=== PATIENT | male | born 1950 | race Caucasian/White ===

== ENCOUNTER 2024-08-10 08:14 | Inpatient (IN) ==
--- NOTE | 2024-08-10 08:48 | Emergency Department Note ---
History of Present Illness General Chief complaint: Tachycardia Stated complaint: TACHYCARDIA, PALPITATIONS Time Seen by Provider: 08/10/24 08:32 Source: patient Mode of arrival: ambulatory Limitations: no limitations History of Present Illness Maximum Pain Intensity: 2 Patient is a 74-year-old male who presents with palpitations. Symptoms started around 3 AM when he went to go to the bathroom. Tachycardic on arrival with a regular rhythm. No history of atrial fibrillation. He does have a history of intermittent PACs. No underlying cardiac history. Denies any lightheadedness, dizziness, chest pain, shortness of breath, nausea, vomiting. No drug use reported. Last folic beverage was 2 days prior. Home Medications Medication Instructions Recorded Confirmed Type sildenafil (pulm.hypertension) 20 20 mg PO DAILY PRN 1-t tablets as 06/03/19 08/10/24 Rx mg tablet needed for sexual activity #90 tabs cholecalciferol (vitamin D3) 50 50 mcg PO DAILY 05/02/22 08/10/24 History mcg (2,000 unit) tablet (Vitamin D3) multivitamin 1 tab PO QAM 05/02/22 08/10/24 History Allergies Allergy/AdvReac Type Severity Reaction Status Date / Time No Known Allergies Allergy Verified 12/30/23 14:15 Past Med/Surg History Problem List (Updated 08/10/24 @ 11:37 by Garcia Ma MD) Atrial fibrillation (Acute) Colon cancer screening Elevated PSA BPH loc w urin obs/LUTS Medical History BPH (benign prostatic hyperplasia) Acid reflux Glaucoma "MILD" NO EYE DROPS CURRENTLY Premature atrial contraction "OCCASIONAL" DX 30+ YEARS AGO (NO CARDS) History of COVID-19 03/18/22>SYMPTOMS RESOLVED Surgical History History of colonoscopy History of tooth extraction Status post glaucoma surgery RT History of hernia repair History of appendectomy Family History Brother Prostate cancer Other No family history of adverse response to anesthesia Social History Smoking Status: Never smoker Second Hand Exposure: No; Hx Alcohol Use: Yes Alcohol type: wine Preferred Language: Urdu 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 Remainder of ROS noncontributory. Physical Exam Vital Signs Vital Signs - 24 hr 08/10/24 08:15 08/10/24 08:35 08/10/24 08:36 Temperature 36.0 C L Temperature Source Temporal Artery Scan Pulse Rate 134 H Pulse Rate [Apical] Pulse Rate from SpO2 Sensor Pulse Rhythm [Apical] Pulse Strength [Apical] Respiratory Rate 22 Respiratory Effort / Characteristics Short of Breath Short of Breath Respiratory Depth Respiratory Pattern Blood Pressure 107/79 103/57 L Blood Pressure [Left Arm] Blood Pressure Mean 88 84 Blood Pressure Mean [Left Arm] Pulse Oximetry 96 Oxygen Delivery Method Room Air Sepsis Recent Fever Within 48 Hours No Sepsis New/Unexplained Change in Mental Status N/A Sepsis Action Taken by Nursing No Action Required End-Tidal CO2 08/10/24 08:42 08/10/24 08:44 08/10/24 08:56 Temperature Temperature Source Pulse Rate 160 H 149 H Pulse Rate [Apical] Pulse Rate from SpO2 Sensor Pulse Rhythm [Apical] Pulse Strength [Apical] Respiratory Rate 18 Respiratory Effort / Characteristics Respiratory Depth Respiratory Pattern Blood Pressure 125/102 H Blood Pressure [Left Arm] Blood Pressure Mean 104 Blood Pressure Mean [Left Arm] Pulse Oximetry Oxygen Delivery Method Sepsis Recent Fever Within 48 Hours Sepsis New/Unexplained Change in Mental Status Sepsis Action Taken by Nursing End-Tidal CO2 08/10/24 08:57 08/10/24 09:00 08/10/24 09:03 Temperature Temperature Source Pulse Rate 147 H 143 H Pulse Rate [Apical] Pulse Rate from SpO2 Sensor 140 H 120 H Pulse Rhythm [Apical] Pulse Strength [Apical] Respiratory Rate 26 H 22 Respiratory Effort / Characteristics Respiratory Depth Respiratory Pattern Blood Pressure 83/71 L Blood Pressure [Left Arm] Blood Pressure Mean 77 Blood Pressure Mean [Left Arm] Pulse Oximetry 90 94 Oxygen Delivery Method Sepsis Recent Fever Within 48 Hours Sepsis New/Unexplained Change in Mental Status Sepsis Action Taken by Nursing End-Tidal CO2 18 34 08/10/24 09:06 08/10/24 09:08 08/10/24 09:18 Temperature Temperature Source Pulse Rate 150 H 147 H Pulse Rate [Apical] Pulse Rate from SpO2 Sensor 108 H Pulse Rhythm [Apical] Pulse Strength [Apical] Respiratory Rate 19 Respiratory Effort / Characteristics Respiratory Depth Respiratory Pattern Blood Pressure 102/74 Blood Pressure [Left Arm] Blood Pressure Mean 94 Blood Pressure Mean [Left Arm] Pulse Oximetry 95 Oxygen Delivery Method Sepsis Recent Fever Within 48 Hours Sepsis New/Unexplained Change in Mental Status Sepsis Action Taken by Nursing End-Tidal CO2 32 08/10/24 09:22 08/10/24 09:30 08/10/24 09:38 Temperature Temperature Source Pulse Rate Pulse Rate [Apical] Pulse Rate from SpO2 Sensor Pulse Rhythm [Apical] Pulse Strength [Apical] Respiratory Rate Respiratory Effort / Characteristics Respiratory Depth Respiratory Pattern Blood Pressure 84/66 L 110/77 113/66 Blood Pressure [Left Arm] Blood Pressure Mean 79 81 83 Blood Pressure Mean [Left Arm] Pulse Oximetry Oxygen Delivery Method Sepsis Recent Fever Within 48 Hours Sepsis New/Unexplained Change in Mental Status Sepsis Action Taken by Nursing End-Tidal CO2 08/10/24 09:54 08/10/24 10:00 08/10/24 10:00 Temperature Temperature Source Pulse Rate 105 H 117 H Pulse Rate [Apical] Pulse Rate from SpO2 Sensor 102 H 114 H Pulse Rhythm [Apical] Pulse Strength [Apical] Respiratory Rate 23 18 Respiratory Effort / Characteristics Respiratory Depth Respiratory Pattern Blood Pressure 113/77 Blood Pressure [Left Arm] Blood Pressure Mean 90 Blood Pressure Mean [Left Arm] Pulse Oximetry 95 87 L Oxygen Delivery Method Sepsis Recent Fever Within 48 Hours Sepsis New/Unexplained Change in Mental Status Sepsis Action Taken by Nursing End-Tidal CO2 31 33 08/10/24 10:15 08/10/24 10:24 08/10/24 11:15 Temperature Temperature Source Pulse Rate 112 H Pulse Rate [Apical] 105 H Pulse Rate from SpO2 Sensor 100 H Pulse Rhythm [Apical] Irregular Pulse Strength [Apical] Normal Respiratory Rate 18 Respiratory Effort / Characteristics Non-Labored Spontaneous Respiratory Depth Normal Respiratory Pattern Regular Blood Pressure 95/75 L Blood Pressure [Left Arm] 105/71 Blood Pressure Mean 80 Blood Pressure Mean [Left Arm] 82 Pulse Oximetry 98 96 Oxygen Delivery Method Room Air Sepsis Recent Fever Within 48 Hours Sepsis New/Unexplained Change in Mental Status Sepsis Action Taken by Nursing End-Tidal CO2 See below Constitutional well developed and well nourished Respiratory normal respiratory effort, lungs clear to auscultation Cardiovascular Rate/Rhythm: + tachycardic and + irregularly irregular Extremities: normal capillary refill Chest (Breasts) normal inspection/palpation of breasts Skin no rashes, warm and dry Procedures Free Text Procedures Procedure: Electrical cardioversion Indication: Atrial fibrillation with RVR with known onset time Performed by: Self Risk, benefits, alternative treatments were discussed with patient. Written consent signed Patient was placed on court recording monitor and AED pads were placed in appropriate position on patient. 5 mg of Versed were given prior to procedure for anxiolysis. Patient was also given 500 mL of normal saline periprocedure. AED was placed and synchronized mode at 150 J. Patient was given 1 shock at 150 J. Remained in atrial fibrillation with RVR. A second shock was then given at 200 J. Patient remained in. Patient Toller procedure well. At this point electrical cardioversion was discontinued. Course Administered Medications Diltiazem HCl 125 mg/ Dextrose 125 mls @ 5 mls/hr IV .Q24H [facility]; Protocol Stop: 09/09/24 09:14 Last Admin: 08/10/24 09:36 Dose: 5 mg/hr, 5 mls/hr Documented By: SKIP Co-signed By: HECTOR Discontinued Medications Sodium Chloride (Nss) 1,000 mls @ 999 mls/hr IV .Q1H1M [facility] Stop: 08/10/24 10:09 Last Infusion: 08/10/24 10:45 Dose: Infused Documented By: Admin: 08/10/24 09:28 Dose: 999 mls/hr Documented By: SKIP Magnesium Sulfate/Dextrose (Magnesium Sulfate / D5w) 1 gm in 100 mls @ 200 mls/hr IV Q30M [facility] Stop: 08/10/24 10:09 Last Admin: 08/10/24 10:45 Dose: Not Given Documented By: Infusion: 08/10/24 10:45 Dose: Infused Documented By: Admin: 08/10/24 09:27 Dose: 200 mls/hr Documented By: SKIP Ioversol (Optiray 320 125ml) 119 ml IV ONCE ONE Stop: 08/10/24 10:35 Last Admin: 08/10/24 10:35 Dose: 119 ml Documented By: JARET Midazolam HCl (Midazolam Hcl 5 Mg/Ml 2ml Vial) 5 mg IV NOW STA Stop: 08/10/24 08:41 Last Admin: 08/10/24 08:53 Dose: 5 mg Documented By: SKIP Miscellaneous (Stat Iv Infusion Titration Per Protocol) 1 each N/A NOW STA Stop: 08/10/24 09:13 Last Admin: 08/10/24 11:11 Dose: Not Given Documented By: GGG Critical Care Time Critical Care Time: Yes Total Critical Care Time: 36 Critical Care Procedure Note Authorized and Performed by:Garcia Ma MD Total critical care time: [id number] Due to a high probability of clinically significant, life threatening deterioration, the patient required my highest level of preparedness to intervene emergently and I personally spent this critical care time directly and personally managing the patient. This critical care time included obtaining a history; examining the patient; pulse oximetry; ordering and review of studies; arranging urgent treatment with development of a management plan; evaluation of patient's response to treatment; frequent reassessment; and, discussions with other providers. This critical care time was performed to assess and manage the high probability of imminent, life-threatening deterioration that could result in multi-organ failure. It was exclusive of separately billable procedures and treating other patients and teaching time. Please see MDM section and the rest of the note for further information on patient assessment and treatment. Medical Decision Making Differential Diagnosis Atrial fibrillation vs. flutter, pericardial effusion Medical Records Attestation: I reviewed the patient's medical records. Home Medications Current Medication List: was personally reviewed by me Laboratory Data Attestation: I reviewed the patient's lab results. 08/10/24 08:30 08/10/24 08:30 Lab Results 08/10/24 Range/Units 08:30 WBC 9.75 (4.8-10.8) K/ul RBC 4.50 L (4.70-6.10) M/uL Hgb 14.7 (14.0-18.0) g/dl Hct 44.0 (42.0-52.0) % MCV 97.8 (80.0-100.0) fL MCH 32.7 (25.0-34.0) pg MCHC 33.4 (32.0-36.0) g/dL RDW Std Deviation 43.2 (36.4-46.3) fL RDW Coeff of Doris 11.9 (11.5-14.5) % Plt Count 277 (130-400) K/uL MPV 10.4 (9.4-12.4) fL Immature Gran % (Auto) 0.3 % Neut % (Auto) 78.4 % Lymph % (Auto) 10.2 % [place] % (Auto) 10.2 % Eos % (Auto) 0.7 % Baso % (Auto) 0.2 % Neut # (Auto) 7.65 H (1.40-6.50) K/uL Lymph # (Auto) 0.99 L (1.20-3.40) K/uL [place] # (Auto) 0.99 H (0.11-0.59) K/uL Eos # (Auto) 0.07 (0.00-0.50) K/uL Baso # (Auto) 0.02 (0.00-0.20) K/uL Immature Gran # (Auto) 0.03 (0.01-0.20) K/uL D-Dimer 1010 H* (0-500) ug/L FEU Sodium 141 (136-145) mmol/L Potassium 3.7 (3.5-5.1) mmol/L Chloride 107 (98-107) mmol/L Carbon Dioxide 26 (21-32) mmol/L Anion Gap 8 (3-11) BUN 14 (6-23) mg/dl Creatinine 1.02 (0.6-1.4) mg/dl Est Cr Clr Drug Dosing 73.9 ml/min eGFR 77.12 BUN/Creatinine Ratio 13.7 (10-20) Glucose 102 H (70-99(Fasting)) mg/dl Calcium 8.9 (8.6-10.3) mg/dl Magnesium 2.1 (1.7-2.4) mg/dl Total Bilirubin 0.9 (0.2-1.0) mg/dl AST 15 (13-39) U/L ALT 13 (7-52) U/L Alkaline Phosphatase 56 (34-104) U/L Troponin I High Sens 6.6 (0-20) pg/ml Total Protein 7.2 (6.0-8.3) gm/dl Albumin 4.1 (3.4-5.0) gm/dl Globulin 3.1 (2.5-4.0) gm/dl Albumin/Globulin Ratio 1.3 (0.9-2) TSH 2.796 (0.300-4.500) uIu/ml Imaging Data Attestation: I personally reviewed and interpreted this imaging study as follows: Radiologist's Impression: Chest CTA 08/10/24 10:00 CT angio chest PE protocol CLINICAL HISTORY: PE TECHNIQUE: Multidetector row helical CT of the chest was performed with angiographic protocol. Coronal and sagittal reformations were obtained. Coronal and sagittal MIPS were obtained from the axial data set and were submitted for review. Automated dose lowering techniques and/or adjustment according to patient size were utilized for this exam. CT DOSE: 698.13 mGy.cm Comparison: Comparison is made to CT abdomen pelvis 12/30/2023 FINDINGS: Lungs and pleura: Atelectasis versus scarring is seen in the dependent portions of the lungs. Tree-in-bud nodularity is seen. There is trace bilateral pleural effusions. There are a few fissural nodules which likely represent intraparenchymal lymph nodes. Heart and pericardium: A moderate pericardial effusion is seen. Vessels: No evidence of pulmonary embolism. Mediastinum and leoncio: Subcentimeter lymph nodes are seen. Chest wall and lower neck: Unremarkable. Abdomen: A hiatal hernia is seen. Bones: Degenerative changes in the thoracic spine. IMPRESSION: 1. No evidence of pulmonary embolus. 2. Tree in bud nodularity may represent infectious/inflammatory process. 3. Moderate pericardial effusion, new from prior exam. 4. Trace bilateral pleural effusions and associated atelectasis. ACT 112: Negative or not required by law. Electronically signed by: Jv Peters M.D. 08/10/2024 11:04 AM ECG Data Attestation: I personally reviewed and interpreted this ECG as follows: Rate (beats per minute): 159 Rhythm: + atrial fibrillation and + atrial flutter ECG [place]: + Normal ECG ST segments: + ST depression (Lateral/inferior ) Comparison ECG Date: no prior available Blood Pressure Blood Pressure Findings: Normal blood pressure MDM Narrative Patient is a 74-year-old male who presents with new onset atrial fibrillation with RVR. Heart rate around 150. Rhythm irregularly irregular. Blood pressure stable on arrival. Known onset time at 3 AM. Patient is an adequate candidate for electrical cardioversion. See procedure note for further details. Patient did not convert after 2 attempts at cardioversion here today. I did touch base with [facility] cardiology who recommended rate control with beta-claribel versus calcium channel claribel. Patient was started on diltiazem drip. Heart rate improved to the low 110s. Blood pressure stable. Electrolytes nonconcerning. D-dimer elevated. Follow-up CTA shows no evidence of PE. Moderate pericardial effusion noted without tamponade physiology. Patient will be admitted for atrial fibrillation with RVR requiring diltiazem infusion. Impression & Plan Atrial fibrillation Admission for rate control Discharge Plan Visit Data Chief Complaint: Tachycardia Stated Complaint: TACHYCARDIA, PALPITATIONS ED Provider: Garcia Ma Discharge Problem: Atrial fibrillation Forms Stand Alone Forms: [facility] [employer] Prescriptions Prescriptions: No Action sildenafil (pulm.hypertension) 20 mg tablet 20 mg PO DAILY PRN (Reason: 1-t tablets as needed for sexual activity) Qty: 90 3RF Rx Instructions: max 100mg in 24 hours multivitamin Tablet 1 tab PO QAM cholecalciferol (vitamin D3) [Vitamin D3] 50 mcg (2,000 unit) Tablet 50 mcg PO DAILY Referrals Referrals: Tamera Marinelli PA-C [Primary Care Provider] -
--- OUTSIDE RECORDS SUMMARY | 2024-08-10 08:48 | External Medical Summary | Continuity of Care Document ---
Author Name Unknown Organization [facility] [address] [id number] Care Team Providers Care Licensed Direct Entry Midwife Name Role Phone Tamera Marinelli Primary Care Physician [phone] [id number] Date(s): 06/09/24 - 06/09/24 [facility] [address] [facility] [address] [place], [place] [id number] Encounter Diagnosis Inflamed seborrheic keratosis(Discharge Diagnosis) - 06/09/24 Skin hemangioma(Discharge Diagnosis) - 06/09/24 Discharge Disposition: Home or Self Care Attending Physician: MD Charlton Thomas A Allergies, Adverse Reactions, Alerts No Known Allergies Assessment and Plan Extracted from: Title:Clinical Document Author:MD Zoltan, Felipa Johnson Date:06/09/24 OUTPATIENT NOTE Name: BABAR BOSS Patient Number:[id number] : 1950 Date of Service: 06/09/2024 Rogelio Boss returns for reevaluation. He notes a keratotic papule that has been irritating in the right infraorbital area. This appears as a seborrheic keratosis and was treated with cryotherapy at patient request and with his consent as inflamed seborrheic keratosis. Side effects were discussed. If it persists or recurs he will let us know. Review of systems medications allergies as noted on the chart. The patient is in stable health. Examination reveals pleasant well-nourished white male type II skin was alert and oriented x 3 with no mood and affect. Examination of the head, neck, back, chest, arms, hands, fingers, abdominal area, legs, feet, and toes reveals scattered seborrheic keratoses about which the patient was reassured as to their benign nature, multiple hemangiomas on the back and abdominal area requiring no further treatment, and is otherwise unremarkable. The patient will return in 1 year for reevaluation. Immunizations Given and Recorded Vaccine Date Status Refusal Reason influenza virus vaccine, inactivated 04/12/22 Give n influenza virus vaccine, inactivated 06/16/19 Give n SARS-CoV-2 (COVID-19) mRNA-1273 vaccine 1 06/19/21 Recorded SARS-CoV-2 (COVID-19) mRNA-1273 vaccine 09/27/20 R ecorded SARS-CoV-2 (COVID-19) mRNA-1273 vaccine 2 09/27/20 Recorded SARS-CoV-2 (COVID-19) mRNA-1273 vaccine 08/30/20 R ecorded SARS-CoV-2 (COVID-19) mRNA-1273 vaccine 3 08/30/20 Recorded pneumococcal 23-valent vaccine 04/10/21 Given pneumococcal 13-valent vaccine 06/16/19 Given tetanus/diphtheria/pertuss, acel (Tdap) 4 02/28/09 Recorded 1Result Comment: 2022-04-12: Historical information-source unspecified 2Result Comment: 2021-04-10: Historical information-source unspecified 3Result Comment: 2021-04-10: Historical information-source unspecified 4Result Comment: 2021-04-10: Historical information-source unspecified Medications Codeine Phosphate-Promethazine HCl 10 mg-6.25 mg/5 mL oral syrup Start: 08/23/22 4:40:00 PM EST, 5 mL, PO, q6h, Disp# 240 mL, Refills: 0, No driving while taking this medication. not to exceed 30 mL/24 hours, PRN: as needed for cough, Pharmacy: [facility]/pharmacy #[id number] Start Date: 08/23/22 Stop Date: 08/28/22 Status: Ordered multivitamin Start: 06/18/22 2:19:00 PM EST, 1 tab, PO, Daily Start Date: 06/18/22 Status: Ordered Omnicef 300 mg oral capsule Start: 08/23/22 3:01:00 PM EST, 1 cap, PO, q12h, Disp# 14 cap, Pharmacy: [id number] Start Date: 08/23/22 Stop Date: 08/30/22 Status: Ordered Shingrix intramuscular injection Start: 04/12/22 9:28:00 AM EDT, 0.5 mL, IM, ONCE, Disp# 1 each, Refills: 1, repeat dose in 2 to 6 months, Pharmacy: [facility] Start Date: 04/12/22 Status: Ordered sildenafil 20 mg oral tablet Start: 10/30/23 5:10:00 PM EDT, See Instructions, Disp# 90 tab, Refills: 1, TAKE 1 TO 5 TABLETS (20MG TO 100MG) BY MOUTH NEEDED FOR SEXUAL ACTIVITY. MAX OF 100MG IN 24 HOURS, Pharmacy: [facility] Start Date: 10/30/23 Status: Ordered tetanus-diphth toxoids (Td) adult/adol 5 units-2 units/0.5 mL preservative-free intramuscular susp Start: 04/12/22 9:35:00 AM EDT, 0.5 mL, IM, ONCE, Disp# 0.5 mL, Pharmacy: [facility] Start Date: 04/12/22 Status: Ordered Vitamin D3 Start: 06/18/22 2:20:00 PM EST Start Date: 06/18/22 Status: Ordered Mental Status 06/09/24 Barriers to Learning one year None evide nt Mandatory Health Literacy Documentation Yes Health Literacy Communication Barriers N ever Primary Language Maldivian Problem List Condition Confirmation Course Effective Dates Status Health St atus Informant Bronchitis, acute Confirmed Active ED (erectile dysfunction) Confirmed Active Chronic glaucoma Confirmed Active History of actinic keratosis Confirmed Active Routine General Medical Examination at a Health Care Facility Confirmed Active Seborrheic keratosis Confirmed Active Weight monitoring Confirmed Active Diagnosis Diagnosis Type Effective Dates Health Status Clinical Service Informant Skin hemangioma Discharge Diagnosis 06/09/24 Inflamed seborrheic keratosis Discharge Diagnosis 06/09/24 Procedures Procedure Date Related Diagnosis Body Site Status Laser surgery 2022 Completed Colonoscopy 1 05/09/22 Completed Glaucoma surgery 2 04/10/22 Comple folrina Hernia repair 2014 Completed Colonoscopy 08/29/09 Completed Colonoscopy 3 08/29/09 Completed Appendectomy [address] [place] [address] Impression: 1. One 5 mm polyp in the descending colon, removed with a hot snare. Resected and retrieved. Clip was placed 2. Non-bleeding internal hemorrhoids 2[facility] Glaucoma treatment using laser. Right eye. 3- diverticulosis sigmoid colon. the exam was otherwise normal to the cecum Social History Social History Type Response Smoking Status Never smoked cigaret marino Sex Male Sex Representation Male (finding) Outpatient Note * MD Zoltan, Julio Cesar Johnson: PERFORM Event Display: .Outpt Note Authored Date: [id number] OUTPATIENT NOTE Name: BABAR BOSS Patient Number:1 [id number] : 1950 Date of Service: 06/09/2024 _ Babar Boss returns for reevaluation. He notes a keratotic papule that has been irritating in the right infraorbital area. This appears as a seborrheic keratosis and was treated with cryotherapy at patient request and with his consent as inflamed seborrheic keratosis. Side effects were discussed. If it persists or recurs he will let us know. Review of systems medications allergies as noted on the chart. The patient is in stable health. Examination reveals pleasant well-nourished white male type II skin was alert and oriented x 3 withno mood and affect. Examination of the head, neck, back, chest, arms, hands, fingers, abdominal area, legs, feet, and toes reveals scattered seborrheic keratoses about which the patient was reassuredas to their benign nature, multiple hemangiomas on the back and abdominal area requiring no furthertreatment, and is otherwise unremarkable. The patient will return in 1 year for reevaluation. Electronic Signature on File Electronically Reviewed/Signed by: Julio Cesar Charlton MD Author Signature Dt/Tm:06/09/2024 04:26 PM Department of Dermatology [facility] Patient Care team information Care Team Personnel Name: ELIANA Marinelli, Tamera Johnson Position: Physician Asst Exmpt - Family Med Member Role: Primary Care Provider Address: [address] [place] [id number] [place] Care Team Related Persons Name: EMMANUELLE BOSS Name: EMMANUELLE BOSS
[2024-08-10] MEDS: MIDAZOLAM HCL 5 MG/ML 2ML VIAL IV STA (08:53)
[2024-08-10 09:21] LABS: Basophils # (auto) 0.02 K/uL (0.00-0.20); Basophils % (auto) 0.2 %; Eosinophils # (auto) 0.07 K/uL (0.00-0.50); Eosinophils % (auto) 0.7 %; Hemoglobin 14.7 g/dl (14.0-18.0); Immature Granulocytes # (auto) 0.03 K/uL (0.01-0.20); Immature Granulocytes % (auto) 0.3 %; Lymphocytes # (auto) 0.99 K/uL (1.20-3.40); Lymphocytes % (auto) 10.2 %; Mean Corpuscular Hemoglobin 32.7 pg (25.0-34.0); Mean Corpuscular Hgb Conc 33.4 g/dL (32.0-36.0); Mean Corpuscular Volume 97.8 fL (80.0-100.0); Mean Platelet Volume 10.4 fL (9.4-12.4); Monocytes # (auto) 0.99 K/uL (0.11-0.59); Monocytes % (auto) 10.2 %; Neutrophils # (auto) 7.65 K/uL (1.40-6.50); Neutrophils % (auto) 78.4 %; Platelet Count 277 K/uL (130-400); RDW Coefficient of Variation 11.9 % (11.5-14.5); RDW Standard Deviation 43.2 fL (36.4-46.3); White Blood Count 9.75 K/ul (4.8-10.8)
[2024-08-10] MEDS: MAGNESIUM SULFATE / D5W 1 GM/100 ML BAG IV SCH (09:27)
[2024-08-10] MEDS: SODIUM CHLORIDE 0.9% 1,000 ML IV SCH ×2 (09:28→16:50)
[2024-08-10] MEDS: dilTIAZem HCL 125 MG in DEXTROSE 5% 100 ML IV SCH (09:36)
[2024-08-10 09:45] LABS: Albumin Globulin Ratio 1.3 (0.9-2); Albumin Level 4.1 gm/dl (3.4-5.0); BUN Creatinine Ratio 13.7 (10-20); Bilirubin,Total 0.9 mg/dl (0.2-1.0); Calcium 8.9 mg/dl (8.6-10.3); Creatinine Clr Calc Pharmacy 73.9 ml/min; Globulin 3.1 gm/dl (2.5-4.0); Magnesium 2.1 mg/dl (1.7-2.4); Potassium 3.7 mmol/L (3.5-5.1); Total Protein 7.2 gm/dl (6.0-8.3)
[2024-08-10 09:53] LABS: D Dimer 1010 ug/L FEU (0-500); Troponin I High Sensitivity 6.6 pg/ml (0-20)
[2024-08-10 10:03] LABS: Thyroid Stimulating Hormone 2.796 uIu/ml (0.300-4.500)
[2024-08-10] MEDS: OPTIRAY 320 125ml IV ONE (10:35)
--- NOTE | 2024-08-10 11:05 | CT Scan Report ---
CT angio chest PE protocol CLINICAL HISTORY: PE TECHNIQUE: Multidetector row helical CT of the chest was performed with angiographic protocol. Schulz l and sagittal reformations were obtained. Coronal and sagittal MIPS were obtained from the axial sonal a set and were submitted for review. Automated dose lowering techniques and/or adjustment according to patient size were utilized for this exam. CT DOSE: 698.13 mGy.cm Comparison: Comparison is made to CT abdomen pelvis 12/30/2023 FINDINGS: Lungs and pleura: Atelectasis versus scarring is seen in the dependent portions of the lungs. Tree-in -bud nodularity is seen. There is trace bilateral pleural effusions. There are a few fissural nodules which likely represent intraparenchymal lymph nodes. Heart and pericardium: A moderate pericardial effusion is seen. Vessels: No evidence of pulmonary embolism. Mediastinum and leoncio: Subcentimeter lymph nodes are seen. Chest wall and lower neck: Unremarkable. Abdomen: A hiatal hernia is seen. Bones: Degenerative changes in the thoracic spine. IMPRESSION: 1. No evidence of pulmonary embolus. 2. Tree in bud nodularity may represent infectious/inflammatory process. 3. Moderate pericardial effusion, new from prior exam. 4. Trace bilateral pleural effusions and associated atelectasis. ACT 112: Negative or not required by law. Electronically signed by: Jv Peters M.D. 08/10/2024 11:04 AM
[2024-08-10] MEDS: STAT IV Infusion **Titration per Protocol STA (11:11)
--- NOTE | 2024-08-10 11:43 | Electrocardiogram Report ---
Test Reason : Blood Pressure : */* mmHG Vent. Rate : 159 BPM Atrial Rate : * BPM P-R Int : * ms QRS Dur : 86 ms QT Int : 292 ms P-R-T Axes : * 48 74 degrees QTcB Int : 474 ms Atrial flutter with rapid ventricular response Nonspecific ST abnormality Abnormal ECG When compared with ECG of 18-Apr-2014 08:39, Atrial flutter has replaced Sinus rhythm Vent. rate has increased by [address] abnormality now present Confirmed by José Joseph ([id number]) on 08/10/2024 11:42:55 AM Referred By: REFERRED SELF Confirmed By: José Joseph
--- NOTE | 2024-08-10 11:45 | History & Physical Report ---
Date of Service August 10, 2024 Assessment & Plan (1) Atrial fibrillation with RVR: (2) Pericardial effusion: (3) Elevated d-dimer: Plan Shine Gomez is a 74 year-old male with medical history significant for BPH, glaucoma, history of PACs who presented to the ED due to concern of elevated HR and chest pain with deep breaths. Patient was admitted due to new finding of atrial fibrillation with RVR after two unsuccessful cardioversion attempts in ED. Atrial Fibrillation with RVR -Reports symptoms started overnight with elevated HR, chest pain with deep breaths -EKG showed aFib vs atrial flutter on arrival. Patient reports no prior aFib, only cardiology history of PACs "40 years ago" -Two attempts at cardioversion unsuccessful -Started on IV diltiazem in ED, will continue. HR currently low 100s at time of admission. -Received 2g IV mag sulfate, ordered 40meq KCl for K of 3.7 -Elevated D-dimer >1000, CTA completed- no evidence of PE. Troponin negative in ED. -Cardiology consulted, appreciate recommendations -Cardiology recommending starting metoprolol tartrate 25mg PO q6h, discontinue diltiazem drip a few hours after initial oral metoprolol if ventricular rate less than 110 bpm -Will start IV heparin per cardiology recommendations, anticipate transition to Eliquis tomorrow -Admit to PCU, monitor on telemetry -Repeat metabolic panel, magnesium level in a.m. Pericardial Effusion -CTA identified moderate pericardial effusion -Will order respiratory biofire, tickborne disease panel, EBV/CMV -Echocardiogram ordered -Cardiology consulted as above, suspected pericarditis- will initiate colchicine BID -Plan to start IV heparin drip and repeat echo in a.m. to ensure no worsening of pericardial effusion Admit to: PCU/tele VTE Prophylaxis: heparin drip Diet: Heart healthy, NSS 100ml/hr x2L Code Status: Full Code History of Present Illness Primary Care Provider: Tamera Marinelli PA-C Shine Gomez is a 74 year-0ld male who presents to the ED for concern of elevated heart rate. Medical history significant for BPH and glaucoma. Patient states that he awoke overnight at about 3am, noted a sensation of racing heart rate as well as some chest pain with deep breathing. Patient denies prior cardiac history, no prior episodes of atrial fibrillation/a.flutter. Endorses having a laser procedure for his glaucoma about 1 month ago but denies any other recent medical procedures. Patient notes that last week he had several days of substernal pain as well as some body aches/chills, but no diarrhea/vomiting/nausea. Patient does not routinely take any prescription medications. Endorses routine alcohol consumption, but states he has not had any alcohol for several days prior to symptoms onset. Currently, patient denies shortness of breath, continues to having sensation of racing heartbeat but overall feeling better. Denies dizziness/lightheadedness, weakness, numbness or tingling. While in the ED he had two attempts at cardioversion which were unsuccessful. ED Course: -EKG -CBC, CMP, mag -CXR -Cardioversion attempted x2, unsuccessful -IV mag sulfate Allergies Allergy/AdvReac Type Severity Reaction Status Date / Time No Known Allergies Allergy Verified 12/30/23 14:15 Home Medications Medication Instructions Recorded Confirmed Type sildenafil (pulm.hypertension) 20 20 mg PO DAILY PRN 1-t tablets as 06/03/19 08/10/24 Rx mg tablet needed for sexual activity #90 tabs cholecalciferol (vitamin D3) 50 50 mcg PO DAILY 05/02/22 08/10/24 History mcg (2,000 unit) tablet (Vitamin D3) multivitamin 1 tab PO QAM 05/02/22 08/10/24 History apixaban 5 mg tablet (Eliquis) 5 mg PO BID #60 tabs 08/11/24 Rx colchicine 0.6 mg tablet (Colcrys) 0.6 mg PO BID #60 tabs 08/11/24 Rx metoprolol succinate 50 mg 100 mg (2 x 50 mg) PO QAM #60 tabs 08/11/24 Rx tablet,extended release 24 hr Past Med/Surg History Problem List (Updated 08/10/24 @ 15:36 by José Joseph MD) Pericarditis Elevated d-dimer Pericardial effusion Atrial fibrillation with RVR Atrial fibrillation (Acute) Colon cancer screening Elevated PSA BPH loc w urin obs/LUTS Medical History BPH (benign prostatic hyperplasia) Acid reflux Glaucoma "MILD" NO EYE DROPS CURRENTLY Premature atrial contraction "OCCASIONAL" DX 30+ YEARS AGO (NO CARDS) History of COVID-19 03/18/22>SYMPTOMS RESOLVED Surgical History History of colonoscopy History of tooth extraction Status post glaucoma surgery RT History of hernia repair History of appendectomy Family History Brother Prostate cancer Other No family history of adverse response to anesthesia Social History Smoking Status: Never smoker Second Hand Exposure: No; Do You Dip or Chew Tobacco: No; Hx Alcohol Use: Yes Alcohol type: wine Hx Substance Use: No Preferred Language: German Communication Ability: Effective Hygiene Teacher Required: No Beliefs That Will Affect Care: None marital status: Current Living Situation: Spouse Feels Safe at Home: Yes Assistive Devices: None Review of Systems Review of Systems: As per above Physical Exam Constitutional: WD/WN, vitals as above Eyes: + anicteric sclerae; no conjunctival abn ormality ENMT: Ears: no external ear abnormality Nose: no external nose abnormality Moist mucous membranes Respiratory: normal respiratory effort, lungs clear to auscultation Cardiovascular: Rate/Rhythm: + irregularly irregular Extremities: no edema Gastrointestinal (Abdomen): Inspection/Auscultation: + abdomen abnormal to inspection and abdomen not distended Percussion/Palpation: abdomen soft; abdomen nontender Musculoskeletal: Moves all limbs independently Skin: no rashes, warm and dry Neurologic: No focal deficits appreciated Psychiatric: A+Ox3, euthymic affect Results & Data Results & Data Vital Signs (Past 12 Hours) Vital Signs Temp Pulse Pulse Resp BP BP Pulse Ox 08/10/24 11:15 105 H 18 105/71 96 08/10/24 10:24 112 H 98 08/10/24 10:15 95/75 L 08/10/24 10:00 117 H 18 87 L 08/10/24 10:00 113/77 08/10/24 09:54 105 H 23 95 08/10/24 09:38 113/66 08/10/24 09:30 110/77 08/10/24 09:22 84/66 L 08/10/24 09:18 147 H 19 95 08/10/24 09:08 102/74 08/10/24 09:06 150 H 08/10/24 09:03 143 H 22 94 08/10/24 09:00 83/71 L 08/10/24 08:57 147 H 26 H 90 08/10/24 08:56 125/102 H 08/10/24 08:44 149 H 08/10/24 08:42 160 H 18 08/10/24 08:36 103/57 L 08/10/24 08:15 36.0 C L 134 H 22 107/79 96 O2 Del Method 08/10/24 11:15 Room Air 08/10/24 10:24 08/10/24 10:15 08/10/24 10:00 08/10/24 10:00 08/10/24 09:54 08/10/24 09:38 08/10/24 09:30 08/10/24 09:22 08/10/24 09:18 08/10/24 09:08 08/10/24 09:06 08/10/24 09:03 08/10/24 09:00 08/10/24 08:57 08/10/24 08:56 08/10/24 08:44 08/10/24 08:42 08/10/24 08:36 08/10/24 08:15 Room Air Diagnostic Findings Chest CTA 08/10/24 10:00 CT angio chest PE protocol CLINICAL HISTORY: PE TECHNIQUE: Multidetector row helical CT of the chest was performed with angiographic protocol. Coronal and sagittal reformations were obtained. Coronal and sagittal MIPS were obtained from the axial data set and were submitted for review. Automated dose lowering techniques and/or adjustment according to patient size were utilized for this exam. CT DOSE: 698.13 mGy.cm Comparison: Comparison is made to CT abdomen pelvis 12/30/2023 FINDINGS: Lungs and pleura: Atelectasis versus scarring is seen in the dependent portions of the lungs. Tree-in-bud nodularity is seen. There is trace bilateral pleural effusions. There are a few fissural nodules which likely represent intra parenchymal lymph nodes. Heart and pericardium: A moderate pericardial effusion is seen. Vessels: No evidence of pulmonary embolism. Mediastinum and leoncio: Subcentimeter lymph nodes are seen. Chest wall and lower neck: Unremarkable. Abdomen: A hiatal hernia is seen. Bones: Degenerative changes in the thoracic spine. IMPRESSION: 1. No evidence of pulmonary embolus. 2. Tree in bud nodularity may represent infectious/inflammatory process. 3. Moderate pericardial effusion, new from prior exam. 4. Trace bilateral pleural effusions and associated atelectasis. ACT 112: Negative or not required by law. Electronically signed by: Jv Peters M.D. 08/10/2024 11:04 AM Supervising Physician Co-Signing Physician Notes Attending addendum: I have physically seen this patient, have supervised the medical residents activities, and agree with the H&P unless as otherwise noted. Assessment and Plan: Atrial fibrillation with RVR/pericardial effusion/hypertension- The patient will be admitted to telemetry for serial cardiac enzymes, serial EKG's, cardiac rhythm monitoring and a 2-D echocardiogram with Dopplers. EKG and monitor in ED showed atrial fibrillation/atrial flutter Patient had attempted cardioversion by the ED unsuccessfully x 2 attempts Was started on diltiazem IV infusion by the ED, which will be discontinued as noted below Magnesium sulfate 2 g IV, and Klor-Con [address]o. [address] angiography negative for PE Troponin negative Consult with cardiology Dr. Joseph recommends initial metoprolol 25mg po q6h doing, with discontinuance of diltiazem drip when rate is less than 110 Cardiology agrees with heparin drip IV, will transition to Eliquis tomorrow Follow serial CBC with differential, basic metabolic panel and magnesium level in the a.m. Pericardial effusion- CT suggested a moderate pericardial effusion Symptom complex is suggestive of a previous viral illness and viral myocarditis, I will therefore order respiratory BioFire, tickborne panel and EBV/CMV Starting colchicine 0.6 mg p.o. twice daily Resident Activity Tracking Resident Involvement: Resident Care Provided Care Provided: Adult Hospital Medicine
[2024-08-10] MEDS: POTASSIUM CHLORIDE CRTAB 20 MEQ TABCR PO STA (12:53)
--- NOTE | 2024-08-10 14:02 | XCELERA ---
[id number]
[2024-08-10 14:25] LABS: Adenovirus PCR Not Detected (NotDetected); Bordetella parapertussis PCR Not Detected (NotDetected); Bordetella pertussis PCR Not Detected (NotDetected); Chlamydia pneumoniae PCR Not Detected (NotDetected); Coronavirus 229E PCR Not Detected (NotDetected); Coronavirus CoV-2 (COVID19)PCR Not Detected (NotDetected); Coronavirus HKU1 PCR Not Detected (NotDetected); Coronavirus NL63 PCR Not Detected (NotDetected); Coronavirus OC43PCR Not Detected (NotDetected); Human Metapneumovirus PCR Not Detected (NotDetected); Influenza A PCR Not Detected (NotDetected); Influenza B PCR Not Detected (NotDetected); Mycoplasma pneumoniae PCR Not Detected (NotDetected); Parainfluenza Virus 1 PCR Not Detected (NotDetected); Parainfluenza Virus 2 PCR Not Detected (NotDetected); Parainfluenza Virus 3 PCR Not Detected (NotDetected); Parainfluenza Virus 4 PCR Not Detected (NotDetected); Respiratory Syncytial VirusPCR Not Detected (NotDetected); Rhinovirus/Enterovirus PCR Not Detected (NotDetected)
--- NOTE | 2024-08-10 15:52 | Cardiology Consultation ---
Date of Consultation August 10, 2024 Assessment & Plan (1) Pericardial effusion: (2) Pericarditis: (3) Atrial fibrillation with RVR: 74-year-old generally healthy man with new onset atrial fibrillation occurring in the context of newly diagnosed moderate pericardial effusion. Fortunately, he is symptom-free and hemodynamically stable currently with improved rate control on diltiazem drip. Prodrome with fever/chills and pleuritic chest pain with residual chest CT abnormalities strongly suggestive of viral illness with pericarditis as etiology for his pericardial effusion. Since recent pericarditis is the most likely explanation for his pericardial effusion (although no ST elevation currently), would recommend initiation of colchicine 0.6 mg twice daily for 3 months. Given the absence of chest pain currently, no immediate need for NSAIDs (also, increased risk of GI bleeding since he will be anticoagulated). Pericardial effusion does not appear hemodynamically significant currently, but blood pressure is low normal and pulses paradoxus mildly increased (difficult to assess with atrial fibrillation). Therefore, would recommend resuming diet and administering modest IV hydration to avoid volume depletion. Also, will check follow-up echocardiogram tomorrow to ensure absence of progression of his pericardial effusion. Given no history of hypertension and borderline low blood pressure currently, would shift from diltiazem drip to metoprolol for more negative chronotropic/less hypotensive effect. Would start metoprolol to tartrate 25 mg p.o. every 6 hours (hold for SBP less than 85 mmHg or heart rate less than 60 bpm). Could discontinue diltiazem drip a few hours after initial oral metoprolol if ventricular rate less than 110 bpm. Given [id number] score of 1 (soon-to-be 2 when he reaches age 75), anticoagulation is indicated. Would utilize IV heparin overnight, on the small chance that he would require intervention such as pericardiocentesis if his pericardial effusion progressed. Obtain follow-up echocardiogram tomorrow, if no progression and effusion could discontinue heparin and initiate apixaban 5 mg twice daily starting tomorrow. Since his atrial fibrillation is likely secondary to pericarditis/effusion, once this resolves if he demonstrates consistent sinus rhythm and could monitor for any recurrent atrial fibrillation, may not need permanent anticoagulation, but he should be anticoagulated for at least the next few months. Dr. Daniels will be rounding tomorrow, I have asked him to check on the patient and offer any further recommendations. History of Present Illness Reason for Consultation: new afib RVR History of Present Illness 74-year-old generally healthy man with no cardiac history admitted 08/10/2024 with new onset atrial fibrillation and moderate pericardial effusion. Patient walks regularly and has no exertional symptoms, denies any routine chest discomfort, dyspnea, or palpitations. About 10 days ago, he developed substernal chest discomfort which was pleuritic but nonpositional associated with fever and chills. No rhinorrhea, coryza, cough, or other URI symptoms. This abated somewhat with aspirin but worsened about 4 days ago, never having completely resolved. Chest discomfort completely resolved a couple days ago, but last night he noted tachypalpitations and reported to the ER where ECG showed atrial fibrillation or atrial flutter at [address] Ma (ER physician) attempted electrical cardioversion x 2 without success. The patient was initiated on diltiazem drip with reasonable rate control (currently 100-110 bpm). His tachypalpitations resolved with rate control and he has not had chest discomfort for several days and notes no dyspnea or other symptoms. Chest CT showed no pulmonary embolism but evidence of infectious/inflammatory pulmonary process (tree-in-bud nodularity), moderate pericardial effusion, and trace bilateral pleural effusions with atelectasis. At the time of my evaluation this afternoon, he had no somatic complaints. Allergies Allergy/AdvReac Type Severity Reaction Status Date / Time No Known Allergies Allergy Verified 12/30/23 14:15 Home Medications Medication Instructions Recorded Confirmed Type sildenafil (pulm.hypertension) 20 20 mg PO DAILY PRN 1-t tablets as 06/03/19 08/10/24 Rx mg tablet needed for sexual activity #90 tabs cholecalciferol (vitamin D3) 50 50 mcg PO DAILY 05/02/22 08/10/24 History mcg (2,000 unit) tablet (Vitamin D3) multivitamin 1 tab PO QAM 05/02/22 08/10/24 History Patient History Medical History BPH (benign prostatic hyperplasia) Acid reflux Glaucoma "MILD" NO EYE DROPS CURRENTLY Premature atrial contraction "OCCASIONAL" DX 30+ YEARS AGO (NO CARDS) History of COVID-19 03/18/22>SYMPTOMS RESOLVED Surgical History History of colonoscopy History of tooth extraction Status post glaucoma surgery RT History of hernia repair History of appendectomy Family History Brother Prostate cancer Other No family history of adverse response to anesthesia Social History Smoking Status: Never smoker Second Hand Exposure: No; Hx Alcohol Use: Yes Alcohol type: wine Preferred 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 BP by MD 100/60 mmHg, 10 to 15 mm pulses paradoxus (difficult to assess given atrial fibrillation)/ Pulse 100-110 bpm and irregular. Respirations 19 and unlabored. Skin: no ecchymoses or generalized lesions. HEENT: unremarkable. Neck: JVP at the clavicle at 90 degrees, no carotid bruits. Negative Kussmaul sign. Lungs: Few basilar crackles but generally clear. Cardiac: Irregular/slightly tachycardic rhythm, normal S1-2, no murmur. Abdomen: benign. Extremities: no edema, pulses intact. Neurologic: normal affect and conversation, nonfocal. Results & Data Laboratory Results Troponin 6.6. Normal CBC. D-dimer 1010. Normal electrolytes, BUN 14, creatinine 1.02. Magnesium 2.1. TSH 2.7. Diagnostic Findings Initial ECG showed A-fib or a flutter with ventricular rate [address] depressions. Compared with 2014 study, a flutter was new and rate had increased by 94 bpm. Second ECG showed atrial fibrillation with rate of 102 bpm, ST depression had resolved. Echocardiogram showed EF 55 to 60% with borderline LVH, no significant valvular disease. Moderate size noncircumferential pericardial effusion which does not appear hemodynamically significant. Chest CT as noted. PG Care Time/CCT Total # of Minutes Spent Total Time Spent with Patient: Total time spent is greater than 50% in coordination of care (as documented) at patient's floor/unit and/or counseling patient: Coding Level of Care Code 86238 IN/OBS CONSULT LVL 5,80M Diagnoses Pericardial effusion I31.39 Pericarditis I31.9 Atrial fibrillation with RVR I48.91
[2024-08-10] MEDS ORDERED: ACETAMINOPHEN 325 MG TAB PO PRN (15:56)
[2024-08-10] MEDS ORDERED: ONDANSETRON INJ 2 MG/ML 2 ML VIAL IV PRN (15:56)
[2024-08-10] MEDS ORDERED: MELATONIN 3 MG TAB PO PRN (15:56)
[2024-08-10] MEDS ORDERED: POLYETHYLENE (MIRALAX) 17 GM PACK PO PRN (15:56)
--- NOTE | 2024-08-10 16:19 | Electrocardiogram Report ---
Test Reason : Blood Pressure : */* mmHG Vent. Rate : 102 BPM Atrial Rate : * BPM P-R Int : * ms QRS Dur : 86 ms QT Int : 338 ms P-R-T Axes : * 37 52 degrees QTcB Int : 440 ms Atrial fibrillation with rapid ventricular response Abnormal ECG When compared with ECG of 10-Aug-2024 08:26, Vent. rate has decreased by [address] no longer depressed in Lateral leads Confirmed by José Joseph ([id number]) on 08/10/2024 4:19:25 PM Referred By: REFERRED SELF Confirmed By: José Joseph
[2024-08-10] MEDS ORDERED: Heparin IV Adult Wt-Based Low-Dose *NO* INITIAL Bolus Protocol IV SCH (16:30)
--- NOTE | 2024-08-10 16:55 | XRay Report ---
Clinical History: Atrial fibrillation Technique: PA and lateral views of the chest were obtained Findings: There are no confluent pulmonary infiltrates. The heart size is at the upper limit of normal. No pleural effusion or pneumothorax is seen. There is a suspected small calcified granuloma in the right midlung No fracture is noted. No foreign body is seen Impression: No active disease Electronically signed by John Cunningham 08-10-2024 4:55 PM
[2024-08-10] MEDS: METOPROLOL TARTRATE 25 MG TAB PO SCH (17:26)
[2024-08-10] MEDS: HEPARIN SODIUM/DEXTROSE 25,000 UNITS/500 ML BAG IV SCH (17:27)
[2024-08-10 18:07] LABS: Partial Thromboplastin Ratio 1.2; Partial Thromboplastin Time 32 Seconds (21-31); Prothrombin Time 10.9 Seconds (9.0-12.0)
[2024-08-10] MEDS: COLCHICINE 0.6 MG TAB PO SCH (20:58)
[2024-08-11 00:29] LABS: ANTI-Xa, UFH(UnfractionatedHep 0.15 IU/ml (0.3-0.7)
[2024-08-11] MEDS ORDERED: HEPARIN SOD (PORCINE) 1000 UNIT/ML IV ONE (00:42)
[2024-08-11] MEDS: HEPARIN SOD (PORCINE) 1000 UNIT/ML IV ONE (01:20)
[2024-08-11 08:07] LABS: Basophils # (auto) 0.01 K/uL (0.00-0.20); Basophils % (auto) 0.2 %; Eosinophils % (auto) 1.7 %; Hematocrit (blood only) 34.3 % (42.0-52.0); Hemoglobin 11.5 g/dl (14.0-18.0); Immature Granulocytes # (auto) 0.02 K/uL (0.01-0.20); Immature Granulocytes % (auto) 0.3 %; Lymphocytes # (auto) 0.68 K/uL (1.20-3.40); Lymphocytes % (auto) 11.5 %; Mean Corpuscular Hemoglobin 32.8 pg (25.0-34.0); Mean Corpuscular Hgb Conc 33.5 g/dL (32.0-36.0); Mean Corpuscular Volume 97.7 fL (80.0-100.0); Mean Platelet Volume 10.1 fL (9.4-12.4); Monocytes # (auto) 0.56 K/uL (0.11-0.59); Monocytes % (auto) 9.5 %; Neutrophils # (auto) 4.54 K/uL (1.40-6.50); Neutrophils % (auto) 76.8 %; Platelet Count 228 K/uL (130-400); RDW Standard Deviation 43.2 fL (36.4-46.3); Red Blood Count 3.51 M/uL (4.70-6.10); White Blood Count 5.91 K/ul (4.8-10.8)
[2024-08-11 08:12] LABS: Albumin Globulin Ratio 1.3 (0.9-2); Albumin Level 3.3 gm/dl (3.4-5.0); BUN Creatinine Ratio 16.7 (10-20); Bilirubin,Total 0.7 mg/dl (0.2-1.0); Calcium 7.9 mg/dl (8.6-10.3); Creatinine Clr Calc Pharmacy 89.7 ml/min; Globulin 2.6 gm/dl (2.5-4.0); Magnesium 2.2 mg/dl (1.7-2.4); Potassium 4.1 mmol/L (3.5-5.1); Total Protein 5.9 gm/dl (6.0-8.3)
[2024-08-11 08:29] LABS: ANTI-Xa, UFH(UnfractionatedHep 0.31 IU/ml (0.3-0.7)
--- NOTE | 2024-08-11 14:06 | XCELERA ---
[id number] \\ISCV-[id number]\ISCV_PDF_[id number]
--- NOTE | 2024-08-11 16:23 | Cardiology Progress Note ---
Date of Service August 11, 2024 Assessment & Plan (1) Atrial fibrillation: (2) Pericardial effusion: (3) Pericarditis: Plan 1. Atrial fibrillation: His atrial fibrillation has converted spontaneously to sinus rhythm, the rate was borderline however now with conversion I would not increase his AV zach blocking medications unless he has recurrence. He should be on an anticoagulant. I will add Eliquis this evening. We do hypothesized that this is due to pericardial inflammation and hopefully will resolve permanently. 2. Pericardial effusion: This is stable, he will need to be watched in the future and I will arrange follow-up in several weeks and we will plan an ec hocardiogram at that time. 3. Pericarditis: We are hypothesizing that this is viral in nature although we cannot prove that. I would continue colchicine for the time being. We can decide on the termination date in the future. From my standpoint he can go home. Admission and Anticipated Discharge Date Admission Date: August 10, 2024 Subjective Patient is feeling well today, he is not having any chest discomfort. He is aware that his atrial fibrillation converted to normal. He is anxious to go home. Physical Exam Physical Exam: Constitutional: Alert, cooperative and in no distress. Pulmonary: Clear to auscultation bilaterally. Cardiac: Regular rhythm with no murmur, gallop or rub. Abdomen: Soft, nontender with normal bowel sounds. Extremities: No edema. Skin: No rash, ecchymoses or petechiae. Results & Data Vital Signs (Past 12 Hours) Vital Signs Temp Pulse Pulse Resp BP Pulse Ox O2 Del Method 08/11/24 07:16 61 08/11/24 07:06 36.7 C 62 17 110/67 96 Room Air 08/11/24 05:16 62 111/62 08/11/24 02:58 36.7 C 62 18 120/68 96 Room Air 08/10/24 23:00 36.8 C 65 18 96 Room Air Laboratory Results Cardiac Enzymes 08/11/24 Range/Units 07:21 AST 13 (13-39) U/L Coagulation 08/10/24 Range/Units 17:11 PT 10.9 (9.0-12.0) Seconds APTT 32 H (21-31) Seconds CBC 08/11/24 Range/Units 07:21 WBC 5.91 (4.8-10.8) K/ul RBC 3.51 L (4.70-6.10) M/uL Hgb 11.5 L D (14.0-18.0) g/dl Hct 34.3 L (42.0-52.0) % Plt Count 228 (130-400) K/uL Neut # (Auto) 4.54 (1.40-6.50) K/uL Lymph # (Auto) 0.68 L (1.20-3.40) K/uL Centre # (Auto) 0.56 (0.11-0.59) K/uL Eos # (Auto) 0.10 (0.00-0.50) K/uL Baso # (Auto) 0.01 (0.00-0.20) K/uL Comprehensive Metabolic Panel 08/11/24 Range/Units 07:21 Sodium 139 (136-145) mmol/L Potassium 4.1 (3.5-5.1) mmol/L Chloride 109 H (98-107) mmol/L Carbon Dioxide 25 (21-32) mmol/L BUN 14 (6-23) mg/dl Creatinine 0.84 (0.6-1.4) mg/dl Glucose 100 H (70-99(Fasting)) mg/dl Calcium 7.9 L (8.6-10.3) mg/dl AST 13 (13-39) U/L ALT 11 (7-52) U/L Alkaline Phosphatase 43 (34-104) U/L Total Protein 5.9 L (6.0-8.3) gm/dl Albumin 3.3 L (3.4-5.0) gm/dl Intake and Output 08/11/24 08/11/24 08/11/24 06:59 14:59 22:59 Intake Total 1257.567 / 3099.317 1768.683 / 1768.683 Balance 1257.567 / 3099.317 1768.683 / 1768.683 Intake: IV 1257.567 / 2429.317 1048.683 / 1048.683 Heparin Sodium/Dextrose 25,000 257.567 / 287.234 48.683 / 48.683 units In 500 ml @ 1,150 UNITS/ HR 23 mls/hr IV .[id number] [facility] Rx #:[id number] Sodium Chloride 0.9% 1,000 ml @ 1000 / 1000 1000 / 1000 100 mls/hr IV .Q10H [facility] Rx#: [id number] dilTIAZem HCL 125 mg In 0 / 0 Dextrose 5% 100 ml @ 0 MG/HR IV .Q0M [facility] Rx#:[id number] Oral 720 / 720 Other: # Unmeasured Voids 1 3 Weight 89.8 kg Weight Measurement Method Built in [facility] Diagnostic Findings Telemetry: Atrial fibrillation until around 1530 yesterday, the rate was about 100 bpm. Since then he has been in sinus rhythm. PG Care Time/CCT Total # of Minutes Spent Total Time Spent with Patient: Total time spent is greater than 50% in coordination of care (as documented) at patient's floor/unit and/or counseling patient: Coding Level of Care Code 22904 SUB INP/OBS CARE 3/50MIN Diagnoses Atrial fibrillation I48.91 Pericardial effusion I31.39 Pericarditis I31.9
[2024-08-11] MEDS: APIXABAN 5 MG TABLET PO STA (17:13)
--- NOTE | 2024-08-11 18:11 | Discharge Summary ---
Discharge Summary Date of Service August 11, 2024 Principal Dx & Hospital Course #1 = Principal Diagnosis (1) Atrial fibrillation with RVR: (2) Pericardial effusion: (3) Pericarditis: Plan Shine Gomez is a 74 year-old male with medical history significant for BPH, glaucoma, history of PACs who presented to the ED due to concern of elevated HR and chest pain with deep breaths. Patient was admitted due to new finding of atrial fibrillation with RVR after two unsuccessful cardioversion attempts in ED. D-dimer was elevated and he had chest pain so CTA chest was obtained - no PE, tree-in-bud infiltrates that were asymptomatic, moderate pericardial effusion No evidence of ACS based on EKG, HS-troponin 6. TTE completed with moderate pericardial effusion no evidence of tamponade, EF 55-60%, no [facility] Settlement Agent Dr. Joseph consulted -started on diltiazem drip in ED, rate control was achieved, transitioned to oral metoprolol. Was in sinus rhythm 08/11. Discharged on metoprolol succinate 100 mg qAM -apixaban started for stroke prevention in afib. I counseled risks:benefits of anticoagulation with him and his -pericardial effusion likely related to pericarditis, initiated treatment with colchicine 0.6 mg bid. May be viral pericarditis and he did have antecedent respiratory illness -follow up limited TTE on 08/11 with pericardial effusion unchanged -tickborne infection labs still pending. EBV and CMV titers were sent and still pending -optimistically, afib might resolve with reduction in pericardial inflammation Follow up in cardiology clinic in 2-3 weeks with repeat Echo I discussed the plan of care with Dr. Benavides Notes For Next Care Provider follow up tickborne labs, EBV, CMV cardiology clinic in 2-3 weeks with repeat Echo Medication Changes From Visit New: metoprolol, apixaban, colchicine Admission HPI Per Admitting Provider Shine Gomez is a 74 year-0ld male who presents to the ED for concern of elevated heart rate. Medical history significant for BPH and glaucoma. Patient states that he awoke overnight at about 3am, noted a sensation of racing heart rate as well as some chest pain with deep breathing. Patient denies prior cardiac history, no prior episodes of atrial fibrillation/a.flutter. Endorses having a laser procedure for his glaucoma about 1 month ago but denies any other recent medical procedures. Patient notes that last week he had several days of substernal pain as well as some body aches/chills, but no diarrhea/vomiting/nausea. Patient does not routinely take any prescription medications. Endorses routine alcohol consumption, but states he has not had any alcohol for several days prior to symptoms onset. Currently, patient denies shortness of breath, continues to having sensation of racing heartbeat but overall feeling better. Denies dizziness/lightheadedness, weakness, numbness or tingling. While in the ED he had two attempts at cardioversion which were unsuccessful. ED Course: -EKG -CBC, CMP, mag -CXR -Cardioversion attempted x2, unsuccessful -IV mag sulfate Discharge Exam PHYSICAL EXAMINATION Last 24h vital signs reviewed, see documentation in flowsheet General: comfortable appearing, no distress, sitting on the edge of the bed well appearing HEENT: Normocephalic, atraumatic, pupils round and equal, sclerae anicteric, no conjunctival injection, moist mucus membranes Lungs: Normal respiratory effort. Clear to auscultation bilaterally. No RRW Heart: Regular rate and rhythm, no murmurs, no rub. No JVD Abdomen: nondistended Extremities: Warm, dry, well-perfused. No extremity edema. Neuro: Alert and oriented x 4, face symmetric, moves 4 extremities well Psych: Normal affect and behavior Discharge Plan Discharge Items Patient Disposition: Home - Self-Care Reason For Visit: AFIB RVR Discharge Diagnosis: Atrial fibrillation, acute pericarditis Activity: Resume your previous activity Non-emergency contact: Primary Care Provider and Settlement Agent Call non-emergency contact if: you have any medication questions, your symptoms worsen and you have a fever Follow-up/Referrals: José Joseph MD [Physician] - Tamera Marinelli PA-C [Primary Care Provider] - Diet: Heart Healthy Addtl Attending Provider Instructions: You were treated for atrial fibrillation - a common arrhythmia -metoprolol succinate daily to control heart rate -eliquis (apixaban), a blood thinner, to prevent stroke. Blood thinners carry the risk of increased bleeding, but this has been shown to be far outweighed by the benefit of stroke protection for most people with afib. Seek medical attention if you have gastrointestinal bleeding like bloody or black/tarry stool. Call 911 if you have signs of stroke or intracranial bleeding like confusion/lethargy, face/arm/leg weakness or numbness, trouble speaking/understanding, trouble walking or trouble seeing You have pericardial effusion (fluid in the sac around the heart) which was likely caused by viral pericarditis -we are treating for pericarditis with colchicine. If you develop diarrhea related to colchicine call the monitor car operator, you could need dose reduction Follow up with cardiology in 2-3 weeks (office should call to schedule) with repeat Echo. you are not in atrial fibrillation right now, we are hopeful this might resolve with resolution of pericarditis and pericardial effusion There are a few tests pending for tick borne infections and viruses - I will contact you if these return abnormal Start the apixaban and metoprolol tomorrow morning Its ok to start the colchicine tonight or in the morning It was a pleasure taking care of you in the hospital, Chelo Bee MD Pending Studies at Discharge: Yes (tickborne infection labs, CMV, EBV titers) Stand-Alone Forms: My [facility], Smoking Cessation Medications and DC Order Prescriptions: New Eliquis 5 mg Tablet 5 mg PO BID Qty: 60 0RF colchicine [Colcrys] 0.6 mg Tablet 0.6 mg PO BID Qty: 60 0RF metoprolol succinate 50 mg Tablet Extended Release 24 Hr 100 mg PO QAM Qty: 60 0RF Continued sildenafil (pulm.hypertension) 20 mg tablet 20 mg PO DAILY PRN (Reason: 1-t tablets as needed for sexual activity) Qty: 90 3RF Rx Instructions: max 100mg in 24 hours multivitamin Tablet 1 tab PO QAM cholecalciferol (vitamin D3) [Vitamin D3] 50 mcg (2,000 unit) Tablet 50 mcg PO DAILY Discharge Orders: Discharge Order (Routine); Ordered 08/11/24 Ordered By: Chelo Lr/Other Patient Handouts: Apixaban Oral Tablet, Metoprolol Oral Tablet, AFib Admission Data Admit Date/Time: 08/10/24 12:12 Attending Provider: Chelo Bee Admit Provider: Anna Marie Madrigal Primary Care Provider: Tamera Marinelli Other Providers: José Joseph Other Interventions: Discharge Summary Assessment (RN) Last Done: 08/11/24 16:37 Hospital Stay Data Consultations 08/10/24 12:12 Consult Cardiology Routine Diagnostic Imagining Performed 08/10/24 10:00 CT for pulmonary embolism PE [CT angio chest PE protocol] Stat Pending Results Patient Have Any Pending Studies at Discharge: Yes (tickborne infection labs, CMV, EBV titers) Discharge Instructions Given to Patient (Per Discharging Provider) You were treated for atrial fibrillation - a common arrhythmia -metoprolol succinate daily to control heart rate -eliquis (apixaban), a blood thinner, to prevent stroke. Blood thinners carry the risk of increased bleeding, but this has been shown to be far outweighed by the benefit of stroke protection for most people with afib. Seek medical attention if you have gastrointestinal bleeding like bloody or black/tarry stool. Call 911 if you have signs of stroke or intracranial bleeding like confusion/lethargy, face/arm/leg weakness or numbness, trouble speaking/understanding, trouble walking or trouble seeing You have pericardial effusion (fluid in the sac around the heart) which was likely caused by viral pericarditis -we are treating for pericarditis with colchicine. If you develop diarrhea related to colchicine call the monitor car operator, you could need dose reduction Follow up with cardiology in 2-3 weeks (office should call to schedule) with repeat Echo. you are not in atrial fibrillation right now, we are hopeful this might resolve with resolution of pericarditis and pericardial effusion There are a few tests pending for tick borne infections and viruses - I will contact you if these return abnormal Start the apixaban and metoprolol tomorrow morning Its ok to start the colchicine tonight or in the morning It was a pleasure taking care of you in the hospital, Chelo Bee MD Total Time Total Time Spent Total Time Spent (In Minutes): I personally spent: 40 minutes today on clinical care activities including: reviewing chart notes and vital signs reviewing labs reviewing studies discussion with professional housing consultant(s) examining and counseling the patient counseling the patient's family writing orders writing prescriptions, discharge instructions documentation Coding Level of Care Code 64147 INP/OBS DISCH >30 MIN Diagnoses Atrial fibrillation with RVR I48.91 Pericardial effusion I31.39 Pericarditis I31.9
[2024-08-11] MEDS ORDERED: APIXABAN 5 MG TABLET PO SCH (19:00)
[2024-08-12] MEDS ORDERED: APIXABAN 5 MG TABLET PO SCH (06:00)
[2024-08-12] MEDS ORDERED: METOPROLOL SUCC 50MG EXT REL TAB PO SCH (09:00)
[2024-08-13 16:21] LABS: Babesia microti DNA Not Detected (Not Detected)
[2024-08-13 17:27] LABS: CMV IgG Antibody <0.60 U/mL; CMV IgM Antibody <30.00 AU/mL; EBV Nuclear Ag Antibody <18.00 U/mL; Epstein Barr Virus Early Ag Ab <9.00 U/mL; Q Fever IgG, Phase I NEGATIVE; Q Fever Phase I IgM Antibody NEGATIVE; Q Fever Phase II IgG Antibody NEGATIVE; Q Fever Phase II IgM Antibody NEGATIVE; R. typhi IgG Ab NOT DETECTED; R. typhi IgM Ab NOT DETECTED; RMSF IgG Ab NOT DETECTED; RMSF IgM Ab NOT DETECTED
--- NOTE | 2024-08-14 08:34 | Billing Data ---
Date of Service August 14, 2024 Coding Level of Care Code 28660 INT INP/OBS CARE
== END 2024-08-11 17:30 | disposition home or self-care (01) | DRG 309 ==
LOC: ED 08:14 → 2S 12:12 → SUATTDRO 12:12 → 2S 15:00
DX: I31.39 Other pericardial effusion (noninflammatory); R91.8 Other nonspecific abnormal finding of lung field; I30.1 Infective pericarditis; I48.91 Unspecified atrial fibrillation; R79.1 Abnormal coagulation profile